=== PATIENT | female | born 1980 | race Caucasian/White ===

== ENCOUNTER → 2017-01-15 | Outpatient (CLI) | payer OTHER | LOC: FIMAGING 15:58 | PROVIDERS: ATTEND Obstetrics & Gynecology | DX: Z34.91 Encounter for supervision of normal pregnancy, unspecified, first trimester (principal); R10.32 Left lower quadrant pain; Z3A.01 Less than 8 weeks gestation of pregnancy ==

== ENCOUNTER → 2017-03-05 | Outpatient (CLI) | payer OTHER | LOC: FIMAGING 13:46 | PROVIDERS: ATTEND Obstetrics & Gynecology | DX: O09.521 Supervision of elderly multigravida, first trimester (principal); O46.8X1 Other antepartum hemorrhage, first trimester; O99.511 Diseases of the respiratory system complicating pregnancy, first trimester; J45.40 Moderate persistent asthma, uncomplicated; Z3A.12 12 weeks gestation of pregnancy ==

== ENCOUNTER → 2017-04-23 | Outpatient (CLI) | payer OTHER | LOC: FIMAGING 11:41 | PROVIDERS: ATTEND Obstetrics & Gynecology | DX: Z36 Encounter for antenatal screening of mother (principal); Z3A.19 19 weeks gestation of pregnancy; O34.219 Maternal care for unspecified type scar from previous cesarean delivery; O09.521 Supervision of elderly multigravida, first trimester; O99.511 Diseases of the respiratory system complicating pregnancy, first trimester; J45.40 Moderate persistent asthma, uncomplicated ==

== ENCOUNTER → 2017-07-09 | Outpatient (CLI) | payer OTHER | LOC: FIMAGING 13:31 | PROVIDERS: ATTEND Obstetrics & Gynecology | DX: O09.523 Supervision of elderly multigravida, third trimester (principal); Z3A.30 30 weeks gestation of pregnancy ==

== ENCOUNTER 2017-07-21 19:10 | Observation (INO) | payer OTHER ==
[2017-07-21 21:28] LABS: FETAL STAIN LOT NUMBER 93179
[2017-07-21 21:29] LABS: FETAL STAIN NEGATIVE NEGATIVE; FETAL STAIN POSITIVE POSITIVE
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
== END 2017-07-21 23:45 | disposition home or self-care (01) ==
LOC: FLD 19:10
PROVIDERS: ADMIT Obstetrics & Gynecology; ATTEND Obstetrics & Gynecology
DX: Z04.1 Encounter for examination and observation following transport accident (principal); Z3A.32 32 weeks gestation of pregnancy

== ENCOUNTER → 2017-07-30 | Outpatient (CLI) | payer OTHER | LOC: FIMAGING 14:09 | PROVIDERS: ATTEND Obstetrics & Gynecology | DX: O09.523 Supervision of elderly multigravida, third trimester (principal); O36.5930 Maternal care for other known or suspected poor fetal growth, third trimester, not applicable or unspecified; O99.513 Diseases of the respiratory system complicating pregnancy, third trimester; Z3A.33 33 weeks gestation of pregnancy ==

== ENCOUNTER → 2017-08-18 | Outpatient (CLI) | payer OTHER | LOC: FIMAGING 10:01 | PROVIDERS: ATTEND Obstetrics & Gynecology | DX: O36.5930 Maternal care for other known or suspected poor fetal growth, third trimester, not applicable or unspecified (principal); Z3A.36 36 weeks gestation of pregnancy ==

== ENCOUNTER 2017-08-23 12:32 | Observation (INO) | payer OTHER | END 2017-08-23 12:55 | disposition home or self-care (01) | LOC: FLD 12:32 | PROVIDERS: ADMIT Obstetrics & Gynecology; ATTEND Obstetrics & Gynecology | DX: Z34.90 Encounter for supervision of normal pregnancy, unspecified, unspecified trimester (principal) ==

== ENCOUNTER 2017-08-26 05:34 | Inpatient (IN) | payer OTHER ==
--- NOTE | 2017-08-21 18:15 | GHP ---
[f rep st] PREOP HISTORY AND PHYSICAL DATE OF ADMISSION: 08/26/2017 The patient's scheduled date of surgery is 08/26/2017 at 7:30 a.m. SURGERY TO BE PERFORMED: Repeat lower transverse section. PREOPERATIVE DIAGNOSIS: 1. History of lower transverse section. 2. Intrauterine growth restriction at 37 weeks' gestation. HISTORY OF PRESENT ILLNESS: The patient is a 36-year-old 3, para 1-0-1-1 with a last menstru al period of 12/06/2016, and an EDC of 09/04/2017 which was set by a first-trimester ultrasound. The patient had care with Dr. Chi at [facility] until transfer of care at 36 w eeks to [facility] because of concerns for possible early delivery and wanting to deliver a [facility]. The patient has a history of a primary lower transverse secti on with G1 secondary to failure to progress. She was induced with that because of non reas suring status on a nonstress test and baby was found to have intrauterine growth restriction at the t kati of . With this , she has been followed very closely with growth ultrasounds chad syed of her prior history and on 08/19/2017 baby's growth had decreased. Baby weighed 2314 g, which was 7th percentile, and she was diagnosed with intrauterine growth restriction. Doppler assessments of the umbilical arteries were performed and 1 of the arteries, Dopplers were elevated. Because of the falling off growth curve and the significant elevated Dopplers, Dr. Neda Prescott, recommended delive ry for this baby at 37 weeks and that is scheduled for 08/26/2017. The patient had previously expres sed an interest in having a vaginal after section, but she understands that she cannot be induced because of the history of the section and the increased risk of uterine rupture, and the need for timing for delivery of this baby because of the growth restriction, so she is sched uled for a section. OTHER RISK FACTORS: Patient is advanced maternal age. Had normal testing and gen etic testing in this . She has a history of asthma which she takes multiple medications and she is varicella nonimmune. PAST OBSTETRICAL HISTORY: In January of 2014, she had a viable male, who weighed 5 pounds 7 ounces, ena arean section secondary to failure to progress. Again, an induction of labor secondary to non reassu ring heart rate tracing on a nonstress test and baby was found to have intrauterine growth rest riction at the time of . Baby was admitted to the ICU for blood sugar control and had a week's stay. That baby is now doing well. In February of 2016, she had a missed , was treated medically with Cytotec and had to have an emergency D and C because of an incomplete and this was he r 3rd . PAST GYNECOLOGICAL HISTORY: She has a normal menstrual triad. Menarche at age 14. Interval every 2 1-28 days. Length of 7 days. This was a normal last menstrual period of 12/06/2016 and a planned pr egnancy. She has no history of abnormal Paps or STDs or gynecological problems. PAST MEDICAL HISTORY: Significant for asthma. She was diagnosed at age 14. She has never been intu bated, but she is on a persistent regimen of Singulair and Pulmicort to keep her symptoms under contr ol and has had good control this . She uses albuterol as needed. She also had a history of anxiety with her first baby. PAST SURGICAL HISTORY: Primary section in 2013, D and C in 2015. She had tonsil and adenoi dectomy at age 4 and wisdom teeth extraction. ALLERGIES: She has a sensitivity to doxycycline, it causes nausea, vomiting. Also hydrocodone cause s nausea, vomiting. She has also food sensitivities to wheat and avocado. LABORATORY DATA: She is O positive. Antibody negative. RPR nonreactive. Rubella immune. Hepatiti s negative. HIV negative. Cystic fibrosis, SMA, fragile X negative. Varicella nonimmune. Antenata l negative. Maternal serum AFP was negative. One hour GTT 96. GBS was negative. SOCIAL HISTORY: She lives with her and her son. 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 She denies tobacco, alcohol, and drug use. FAMILY HISTORY: Significant for paternal grandfather who of an ND in his 50s. Maternal grandmo ther has heart disease as does her mother. Mother has elevated cholesterol and thyroid disease. Pat rolando grandmother of lung cancer in her 90s. Her mother had a rare form of uterine cancer and s kin cancer. Maternal grandfather had dementia. REVIEW OF SYSTEMS: Today is negative except for normal complaints. No vaginal bleeding, l eakage of fluid. She has good movement and had a normal reactive nonstress test today. OBJECTIVE: VITAL SIGNS: Weight is 178.6 pounds. Blood pressure is 122/70. She has had a 40-pound weight gain this . Her urine dip is negative. GENERAL: She is a well-developed, gravid wh ite female, in no acute distress. LUNGS: Clear to auscultation bilaterally. HEART: Regular rate a nd rhythm, no murmur. ABDOMEN: Gravid. Fundal height is 34. heart tones are in the 130s. P ELVIC: Deferred. ASSESSMENT AND PLAN: A 36-year-old, 3, para 1-0-1-1, who will be 37 weeks and 2/7 days on . Is scheduled for a repeat lower transverse section secondary to history of ab an section and intrauterine growth restriction requiring delivery at 37 weeks. The patient was conse nted for the procedure today. She understood the risks and benefits. The risks including bleeding, infection, damage to internal organs, uterus, tubes, ovaries, bowel, bladder, nerves, blood vessels, ureters, risk of injury, risk of hemorrhage requiring blood transfusion, hysterectomy. The pat ient understood these risks and benefits and agreed to proceed. /[id number]/MODL
[2017-08-26] MEDS ORDERED: LR 500 ML IV ONE (05:46)
[2017-08-26] MEDS ORDERED: CITRIC ACID/SODIUM CITRATE 30 ML UDCUP PO ONE (05:46)
[2017-08-26] MEDS ORDERED: ceFAZolin 2 GM/DEXTROSE 100 ML IV ONE (05:46)
[2017-08-26] MEDS ORDERED: LR 1,000 ML IV SCH (06:00)
[2017-08-26 06:21] LABS: PLATELET COUNT 262 10^3/uL (150-400)
--- NOTE | 2017-08-26 07:31 | PDANEPAE ---
ANE History of Present Illness repeat c/s ANE Past Medical History - Pulmonary History Hx Asthma/Reactive Airway Disease: Yes Hx Oxygen in Use at Home: No Hx Sleep Apnea: No - Neurologic History Neurologic History Comment: tic - Endocrine History Hx Diabetes: No - GI History GERD: mild ANE Review of Systems Review of systems is: negative Review of Systems: - Exercise capacity Exercise capacity: >=4 METS ANE Patient History - Allergies Allergies/Adverse Reactions: acetaminophen [From Vicodin] Allergy (Mild, Verified 04/18/13 18:22) GI doxycycline Allergy (Mild, Verified 04/18/13 18:22) GI hydrocodone bitartrate [From Vicodin] Allergy (Mild, Verified 04/18/13 18:22) GI [place] Allergy (Uncoded 02/06/14 20:29) Egg White Allergy (Uncoded 02/06/14 20:29) [place] Allergy (Uncoded 02/06/14 20:29) Wheat Allergy (Uncoded 02/06/14 20:29) - Home Medications Home medications: home medication list seen and reviewed Home Medications: Dha 1 tab PO DAILY 02/06/14 [Last Taken 07/20/17] 1-1 Tablet 1 tab PO DAILY 02/06/14 [Last Taken 07/20/17] Singulair 10 mg (RX) 1 tab PO DAILY 02/06/14 [Last Taken 07/20/17] Albuterol 2 puffs PO PRN PRN 07/21/17 [Last Taken 07/21/17 19:32] Colace 100 MG (*) 1 cap PO DAILY 07/21/17 [Last Taken 07/20/17] PANTOTHENIC ACID 1 tab PO DAILY 07/21/17 [Last Taken 07/20/17] Pulmicort 180Mcg Flexhaler (*) 1 tab PO DAILY 07/21/17 [Last Taken 07/20/17] - NPO status NPO Status: no food or drink >8 hours - Anes Hx Anes Hx: no prior problems - Smoking Hx Smoking Status: Never smoked - Family Anes Hx Family Anes Hx: none ANE Labs/Vital Signs - Labs Result Diagrams: 08/26/17 06:09 - Vital Signs Height: 163.83 cm Weight: 80.739 kg ANE Physical Exam - Airway Neck exam: FROM Mallampati Score: Class 1 Mouth exam: normal dental/mouth exam - Pulmonary Pulmonary: no respiratory distress - Cardiovascular Cardiovascular: regular rate and rhythym - ASA Status ASA Status: I ANE Anesthesia Plan Anesthesia Plan: spinal
[2017-08-26] MEDS ORDERED: morphINE PF 5 MG/10 ML INJ ONE (07:33)
[2017-08-26] MEDS ORDERED: ONDANSETRON 4 MG/2 ML VIAL ONE (07:39)
[2017-08-26] MEDS ORDERED: DEXAMETHASONE 4 MG/ML VIAL ONE (07:39)
[2017-08-26] MEDS ORDERED: NALOXONE HCL 0.4 MG/ML INJ IVP PRN ×2 (08:36→08:59)
[2017-08-26] MEDS ORDERED: PHENYLEPHRINE HCL 100 MCG/ML SYR IVP PRN (08:36)
[2017-08-26] MEDS ORDERED: MEPERIDINE 25 MG/ML SYR IVP PRN (08:36)
[2017-08-26] MEDS ORDERED: HYDROmorphONE/DILAUDID 1 MG/ML INJ IVP PRN (08:36)
[2017-08-26] MEDS ORDERED: fentaNYL 100 MCG/2 ML INJ IVP PRN (08:36)
[2017-08-26] MEDS ORDERED: ONDANSETRON 4 MG/2 ML VIAL IVP PRN (08:36)
--- NOTE | 2017-08-26 08:38 | POSTANESTH ---
Post Anesthetic Evaluation Cardiovascular Status: Normal, Stable, Similar to Pre-Op Cond Respiratory Status: Normal, Stable, Similar to Pre-op Cond. Level of Consciousness/Mental Status: Can Participate in Eval, Alert and Oriented Pain Control: Adequate, Prn Tx Ordered Nausea/Vomiting Control: Adequate, Prn Tx Ordered Complications Possibly Related to Anesthesia: None Noted
[2017-08-26] MEDS ORDERED: OXYTOCIN 100 UNITS/10 ML VIAL ONE (08:57)
[2017-08-26] MEDS ORDERED: ACETAMINOPHEN 325 MG TAB PO PRN (10:09)
[2017-08-26] MEDS ORDERED: PROMETHAZINE HCL 25 MG/ML INJ IVP PRN (10:09)
[2017-08-26] MEDS ORDERED: MAGNESIUM HYDROXIDE 30 ML UDCUP PO PRN (10:09)
[2017-08-26] MEDS ORDERED: LACTULOSE 20 GM/30 ML UDCUP PO PRN (10:09)
[2017-08-26] MEDS ORDERED: SIMETHICONE 80 MG TAB CHEW PO PRN (10:09)
[2017-08-26] MEDS ORDERED: BISACODYL 10 MG SUPP PR PRN (10:09)
[2017-08-26] MEDS ORDERED: DOCUSATE SODIUM 100 MG CAP PO PRN (10:09)
--- NOTE | 2017-08-26 10:22 | OBDEL ---
Info Type: Repeat Presentation at Delivery: Vertex L&D Analgesia/Anesthesia Type: Spinal GBS+: No Intrapartum Medications: Discontinued Medications Generic Name Dose Route Start Last Admin Trade Name Adia PRN Reason Stop Dose Admin Citric Acid/Sodium Citrate 30 ml 08/26/17 05:46 08/26/17 07:51 Bicitra PO 08/26/17 05:47 30 ml ONCALL ONE Administration Cefazolin Sodium/Dextrose 100 mls @ 200 mls/hr 08/26/17 05:46 08/26/17 07:51 Ancef 2 Gm (Premix) IV 08/26/17 06:15 100 mls ONCALL ONE Administration Protocol Indications for Delivery: Growth Restriction w/Abnormal Doppler studies Vaginal Delivery - Labor and Delivery Rupture of Membranes Date: 08/26/17 Rupture of Membranes Time: 08: Placenta Delivery Date: 08/26/17 Placenta Delivery Time: Operative Report - Delivery Pre-op Diagnoses: IUP 37 weeks, IUGR with elevated dopplers, hx prior section Post-op Diagnoses: same History of Prior Section: Yes Number of Prior Sections: 1 Nulliparous Prior to Delivery: No Indications for Prior Section: Non-reas. Status Indications for Current Section: Elective/Repeat, Other (Specify) (IUGR ) Surgeon: Mariya Soriano Rental Management Trainee: Delfina Bravo Anesthesiologist: Js Higuera Complications: None EBL: 600 Copen Data TAVO: 09/14/17 Gestational Age: 37 week(s) and 2 day(s) Powell Delivery Date: 08/26/17 Delivery Time: Sex of Infant: Female Score (1 Min): 8 Score (5 Min): 9 ICD10 Worksheet Patient Problems: Problems Problem Status Onset delivery delivered Acute heart rate decelerations affecting management of mother Acute Retained tissue Acute - ICD10 Problem Qualifiers (1) delivery delivered
[2017-08-26] MEDS: ONDANSETRON 4 MG/2 ML VIAL IVP PRN ×2 (13:05→17:28)
[2017-08-26] MEDS: KETOROLAC 30 MG/1 ML SDV IVP SCH ×2 (13:07→19:00)
--- NOTE | 2017-08-26 13:38 | GOP ---
[f rep st] OPERATIVE REPORT DATE OF OPERATION: 08/26/2017 SURGEON: Mariya Soriano DO BOX PRINTER: CYNDI Brown PREOPERATIVE DIAGNOSIS: 1. Intrauterine at 38-2/7 weeks' gestation. 2. History of previous low-transverse section. 3. Intrauterine growth restriction with elevated Dopplers. POSTOPERATIVE DIAGNOSIS: 1. Intrauterine at 38-2/7 weeks' gestation. 2. History of previous low-transverse section. 3. Intrauterine growth restriction with elevated Dopplers. PROCEDURE PERFORMED: Repeat low-transverse section. FINDINGS: 1. Viable female in the cephalic presentation, delivered at 0827 hours, Apgars were 8 and 9. 2. Intact placenta with 3-vessel cord. 3. Normal ovaries, uterus, and tubes. ESTIMATED BLOOD LOSS: 600 cc. INDICATIONS: Patient is a 36-year-old 3, para 1-0-1-1, with a last menstrual period of 12/06, and estimated date of confinement of 09/04/2017 by 1st-trimester ultrasound. The patient init iated care with Dr. Chi at [facility] and transferred to [facility] at 36 weeks' gestation due to concerns of needing to be delivered early. The patient had a histor y of a previous low-transverse section with her 1st secondary to failure to progre ss. She was induced with that due to non-reassuring status on a nonstress test, and the baby later was found to be growth restricted. Because of her history of growth restriction, she was followed closely with this and had been 19th percentile through , and the most recent ultrasound on 08/19 showed the baby was in the 7th percentile with elevated Dopplers. Recomm endation for delivery at 37 weeks was made. Because the patient has a history of a previous low-edwards sverse section and she had a non-favorable cervix, decision was made to proceed with a repea t low-transverse section. The patient declines tubal ligation. Risks and benefits of the p rocedure have been reviewed with the patient and the patient was properly consented. DESCRIPTION OF PROCEDURE: Patient was taken to the operating room with intravenous fluids in place. She was then seated on the operating room table in the supine position, where anesthesia was obtaine d. She was then repositioned into the dorsal supine position with a leftward tilt. Loomis catheter w as then placed. Venodynes were placed on her lower extremities and she was then prepped and draped i n the normal sterile fashion. Anesthesia was assessed and found to be adequate. A Pfannenstiel skin incision was then made 2 fingerbreadths above the pubic symphysis. The incision was then carried th rough to the underlying layer of fascia with the Bovie. The fascia was then nicked in the midline an d the fascial incision was extended laterally. The superior aspect of the fascial incision was then grasped with Andreas's, tented up, and the underlying rectus muscle dissected off bluntly with the Bov ie. Attention was then turned to the inferior aspect of the fascial incision, which in a similar fas hion was grasped with the Andreas's, tented up, and the underlying rectus muscle dissected off bluntly with the Bovie. The rectus muscle was then in the midline. The peritoneum was then ident ified, tented up, and entered sharply with the Metzenbaum scissors. The incision was extended superi kristin and inferiorly with excellent visualization of the bladder. The bladder blade was then inserted . The vesicouterine peritoneum was then identified, tented up, and entered sharply with the Metzenba um scissors. The incision was extended laterally and bladder flap was created digitally. The bladde r blade was then reinserted. The uterus was then incised in a low-transverse fashion with the scalpe l. The uterine incision was extended laterally. The clear fluid was noted upon entering the amnioti c sac. Large amount of clear fluid was noted. The 's head was then delivered through the inci sammy without difficulty. Delayed cord clamping x1 was done. Cord was clamped x2 and cut and the inf ant was handed off to the nurse practitioner without difficulty. The uterus was then exteri orized and cleared of all clots and debris and wrapped in a moist laparotomy sponge. The bladder buck de was then reinserted. The uterine incision was then closed with 0 Vicryl in a running locked fashi on. A 2nd 0 Vicryl stitch was used to imbricate the uterine incision. The ovaries, uterus, and, tub es were unremarkable. The gutters were cleared of all clots and debris. The uterus was then returne d to the patient's abdomen. The gutters in the hysterotomy remained dry. The peritoneum was reappro ximated with 3-0 Vicryl in a running fashion. Rectus muscle was reapproximated with 2-0 Vicryl in a running fashion. Fascia was closed with 0 Vicryl in a running fashion. Savi tissue was found to b e hemostatic. It was reapproximated with 3-0 Vicryl in a running fashion. The subcuticular tissue w as reapproximated with 3-0 Vicryl in a running fashion. The skin was then closed with lucy in sev eral areas. Sponge, lap, and needle count were correct x2. Patient was transported to recovery room in stable condition. /[id number]/MODL
[2017-08-26] MEDS ORDERED: ALBUTEROL 200 PUFFS/18 GM MDI IH PRN (16:30)
--- NOTE | 2017-08-26 19:23 | OBPP ---
Progress Note Assessment/Plan: Assessment: pod# 0 s/p RLTCS breast feeding asthma uri Plan: routine post operative and post care 08/26/17 19:18 Subjective/ Course: 08/26/17 19:23 patient is doing well. was having low O2 saturation so was seen by respiratory therapists and started on o2. has a uri and a long hx of asthma and respiratory issues. working on breast feeding. still having nausea. feels much better than after last c section. very happy with care. Objective: 08/26/17 06:09 Patient ABO/Rh O POSITIVE 08/26/17 06:09 Temp Pulse Resp BP Pulse Ox 36.3 C 80 16 113/59 L 98 08/26/17 17:00 08/26/17 07:30 08/26/17 14:59 08/26/17 15:59 08/26/17 17:45 Physical Exam - Physical Exam Neck: non-tender, full range of motion Respiratory: chest non-tender, lungs clear, normal breath sounds Cardiac/Chest: normal peripheral pulses, regular rate, rhythm Abdomen: normal bowel sounds, non-tender Extremities: normal range of motion, non-tender, normal inspection, normal capillary refill Skin: normal color, warm/dry Neuro/Psych: no motor/sensory deficits, alert, normal mood/affect, oriented x 3
[2017-08-26] MEDS: MONTELUKAST SODIUM 10 MG TAB PO SCH (20:55)
[2017-08-26] MEDS: SENNOSIDES/DOCUSATE SODIUM TAB PO SCH (20:56)
[2017-08-27] MEDS: KETOROLAC 30 MG/1 ML SDV IVP SCH ×2 (00:29→06:09)
[2017-08-27] MEDS ORDERED: PULMICORT 180 MCG PO SCH (09:00)
[2017-08-27] MEDS ORDERED: PANTOPRAZOLE SODIUM 20 MG PO SCH (09:00)
[2017-08-27] MEDS: PULMICORT 180 MCG IH SCH ×2 (09:29→20:48)
[2017-08-27] MEDS: MONTELUKAST SODIUM 10 MG TAB PO SCH ×2 (09:30→20:48)
--- NOTE | 2017-08-27 09:30 | OBPP ---
Progress Note Assessment/Plan: Assessment: 36yo s/p repeat c/s POD#1 asthma anemia Plan: routine post op care start PO iron BID cont asthma meds/resp therapy PRN katz to be removed at this time ambulate plan to d/c home in approx 48 hours 08/27/17 09:31 08/27/17 09:35 08/27/17 09:36 Subjective/ Course: 08/26/17 19:23 patient is doing well. was having low O2 saturation so was seen by respiratory therapists and started on o2. has a uri and a long hx of asthma and respiratory issues. working on breast feeding. still having nausea. feels much better than after last c section. very happy with care. 08/27/17 09:32 Pt doing well, she denies any pain. She reports min bleeding. She has not voided yet, katz still in place- to be removed this morning. She denies any chest pain, SOB. She is , feels like she is latching ok. She is happy and states she feels good. Son, Osvaldo, will be coming to visit this morning. Objective: 08/27/17 06:15 Patient ABO/Rh O POSITIVE 08/26/17 06:09 Temp Pulse Resp BP Pulse Ox 37.1 C 80 18 85/44 L 96 08/27/17 06:25 08/27/17 06:25 08/27/17 06:25 08/27/17 06:25 08/27/17 06:25 Uterine Position/Fundal Height: Umbilicus -1, Midline Uterine Tone: Firm Physical Exam - Physical Exam Neck: supple Respiratory: lungs clear, normal breath sounds Cardiac/Chest: regular rate, rhythm Abdomen: non-tender, soft, incision, dressing (c/d/i) Neuro/Psych: no motor/sensory deficits, alert, normal mood/affect, oriented x 3
[2017-08-27] MEDS: SENNOSIDES/DOCUSATE SODIUM TAB PO SCH ×2 (09:53→20:43)
[2017-08-27] MEDS: OXYCODONE/APAP 5/325 TAB PO PRN ×4 (09:53→23:04)
[2017-08-27] MEDS: IRON POLYSAC/IRON HEME 28 MG TAB PO SCH ×2 (12:23→20:42)
[2017-08-27] MEDS: IBUPROFEN 600 MG TAB PO PRN ×2 (12:23→18:54)
--- NOTE | 2017-08-27 12:30 | SOAPPROG ---
SOAP Progress Note Assessment/Plan: Assessment: 36 yo female POD 1 s/p repeat c/s under SAB with morphine for post op pain. Doing well, pain reasonably controlled. Plan:continue po/iv analgesics prn as spinal morphine analgesia effect wanes 08/27/17 12:27 08/27/17 12:29 Subjective: pain increasing slightly, denies SCALES/weakness/numbness/paresthesias/pain at SAB site/radiculopathy Objective: awake and alert, neuro grossly intact Vital Signs Temp Pulse Resp BP Pulse Ox 36.6 C 77 18 91/57 L 93 08/27/17 08:00 08/27/17 08:00 08/27/17 06:25 08/27/17 08:00 08/27/17 08:00 Laboratory Results 08/27/17 06:15 08/26/17 08/27/17 08/28/17 05:59 05:59 05:59 Intake Total 2850 Output Total 3500 Balance -650 - Time Spent With Patient Time Spent With Patient: 5 min ICD10 Worksheet Patient Problems: Problems Problem Status Onset delivery delivered Acute heart rate decelerations affecting management of mother Acute Retained tissue Acute
[2017-08-28] MEDS: IBUPROFEN 600 MG TAB PO PRN ×4 (01:00→19:30)
[2017-08-28] MEDS: HYDROmorphONE/DILAUDID 2 MG TAB PO PRN ×6 (02:49→21:42)
[2017-08-28] MEDS: POLYETHYLENE GLYCOL 3350 17 GM PKT PO PRN (09:12)
[2017-08-28] MEDS: SENNOSIDES/DOCUSATE SODIUM TAB PO SCH ×2 (09:14→21:41)
[2017-08-28] MEDS: IRON POLYSAC/IRON HEME 28 MG TAB PO SCH ×2 (09:14→21:41)
[2017-08-28] MEDS: PULMICORT 180 MCG IH SCH ×2 (09:18→20:06)
--- NOTE | 2017-08-28 11:28 | OBPP ---
Progress Note Assessment/Plan: Assessment: POD 2 s/p RCS anemia Plan: routine care, iron BID, try increasing freq of dilaudid 08/28/17 11:22 Subjective/ Course: 08/26/17 19:23 patient is doing well. was having low O2 saturation so was seen by respiratory therapists and started on o2. has a uri and a long hx of asthma and respiratory issues. working on breast feeding. still having nausea. feels much better than after last c section. very happy with care. 08/27/17 09:32 Pt doing well, she denies any pain. She reports min bleeding. She has not voided yet, katz still in place- to be removed this morning. She denies any chest pain, SOB. She is , feels like she is latching ok. She is happy and states she feels good. Son, Osvaldo, will be coming to visit this morning. 08/28/17 11:23 Pt has now had 2 pills of the dilaudid and thinks its going to help more than the percocet. sergio reg diet but occas mild nausea. bld has decreased - urinating fine. Had a BM and hoping that helps the pain. Pain meds wearing off early and will increase freq to 3 hrs. baby has latched ok Objective: 08/27/17 06:15 Patient ABO/Rh O POSITIVE 08/26/17 06:09 Temp Pulse Resp BP Pulse Ox 36.6 C 84 15 99/67 L 95 08/28/17 08:00 08/28/17 08:00 08/28/17 01:00 08/28/17 08:00 08/28/17 08:00 Uterine Position/Fundal Height: Umbilicus -1 Uterine Tone: Firm Physical Exam - Physical Exam Abdomen: non-tender (approp post op tenderness), soft, other (incision CDI, lucy in place) Extremities: non-tender, pedal edema (mild) Skin: normal color, warm/dry Neuro/Psych: alert, normal mood/affect (feels a bit fragile)
[2017-08-28] MEDS ORDERED: HYDROmorphONE/DILAUDID 4 MG TAB PO PRN (11:30)
[2017-08-28] MEDS ORDERED: HYDROmorphONE/DILAUDID 2 MG TAB ONE (14:47)
[2017-08-28] MEDS: MONTELUKAST SODIUM 10 MG TAB PO SCH (20:08)
[2017-08-29] MEDS: HYDROmorphONE/DILAUDID 2 MG TAB PO PRN ×4 (01:21→20:41)
[2017-08-29] MEDS: IBUPROFEN 600 MG TAB PO PRN ×4 (01:21→20:40)
[2017-08-29] MEDS: SENNOSIDES/DOCUSATE SODIUM TAB PO SCH ×2 (08:24→20:40)
[2017-08-29] MEDS: IRON POLYSAC/IRON HEME 28 MG TAB PO SCH ×2 (08:24→20:40)
[2017-08-29] MEDS: PULMICORT 180 MCG IH SCH ×2 (08:26→20:42)
[2017-08-29] MEDS: POLYETHYLENE GLYCOL 3350 17 GM PKT PO PRN (08:44)
[2017-08-29 10:07] VITALS: PULSE 85
--- NOTE | 2017-08-29 11:50 | OBPP ---
Progress Note Assessment/Plan: Assessment: 1) s/p RCS POD # 3 - pt is stable 2) Anemia - pt is asymptomatic Plan: Continue routine pp care Will change Dilaudid to 1 mg q 3 hr prn to see if pain is better controlled Lucy to be removed today Encourage ambulation Plan for d/c if baby is discharged home, but has lost weight-11% Instructions reviewed with pt Rx given for Dilaudid and Motrin Cont PNV, iron and colace and not to take Miralax daily Pelvic rest RTC in 2, 4 and 6 weeks for pp check 08/29/17 11:53 Subjective/ Course: 08/26/17 19:23 patient is doing well. was having low O2 saturation so was seen by respiratory therapists and started on o2. has a uri and a long hx of asthma and respiratory issues. working on breast feeding. still having nausea. feels much better than after last c section. very happy with care. 08/27/17 09:32 Pt doing well, she denies any pain. She reports min bleeding. She has not voided yet, katz still in place- to be removed this morning. She denies any chest pain, SOB. She is , feels like she is latching ok. She is happy and states she feels good. Son, Osvaldo, will be coming to visit this morning. 08/28/17 11:23 Pt has now had 2 pills of the dilaudid and thinks its going to help more than the percocet. sergio reg diet but occas mild nausea. bld has decreased - urinating fine. Had a BM and hoping that helps the pain. Pain meds wearing off early and will increase freq to 3 hrs. baby has latched ok 08/29/17 11:51 Pt seen and examined. She is doing better, pain is better controlled. Has not had Dilaudid since 0100, but notes some shakiness with it. Pt is OOB, sergio regular diet, voiding without difficulty, and BM x 2 -with use of Miralax. Mod lochia. BF with some difficulty-to work with today. Objective: 08/27/17 06:15 Patient ABO/Rh O POSITIVE 08/26/17 06:09 Temp Pulse Resp BP Pulse Ox 36.7 C 85 16 106/65 95 08/29/17 10:06 08/29/17 10:06 08/29/17 10:06 08/29/17 10:06 08/29/17 10:06 Uterine Position/Fundal Height: Umbilicus -2 Uterine Tone: Firm Physical Exam - Physical Exam Respiratory: lungs clear, normal breath sounds Cardiac/Chest: regular rate, rhythm Abdomen: normal bowel sounds, non-tender, soft, flatus (+), incision (C/D/I with lucy) Extremities: non-tender, normal inspection Skin: normal color, warm/dry Neuro/Psych: alert, normal mood/affect, oriented x 3
--- NOTE | 2017-08-29 11:54 | OBGCSDC ---
General Delivery Information - General Info : 3 Para: 2 Abortions: 0 Type: Repeat L&D Analgesia/Anesthesia Type: Spinal Admission Date: 08/26/17 Labs: Patient ABO/Rh O POSITIVE 08/26/17 06:09 Hct 28.9 % (38.0-47.0) L D 08/27/17 06:15 - Hospital Course : 08/26/17 19:23 patient is doing well. was having low O2 saturation so was seen by respiratory therapists and started on o2. has a uri and a long hx of asthma and respiratory issues. working on breast feeding. still having nausea. feels much better than after last c section. very happy with care. 08/27/17 09:32 Pt doing well, she denies any pain. She reports min bleeding. She has not voided yet, katz still in place- to be removed this morning. She denies any chest pain, SOB. She is , feels like she is latching ok. She is happy and states she feels good. Son, Osvaldo, will be coming to visit this morning. 08/28/17 11:23 Pt has now had 2 pills of the dilaudid and thinks its going to help more than the percocet. sergio reg diet but occas mild nausea. bld has decreased - urinating fine. Had a BM and hoping that helps the pain. Pain meds wearing off early and will increase freq to 3 hrs. baby has latched ok 08/29/17 11:51 Pt seen and examined. She is doing better, pain is better controlled. Has not had Dilaudid since 0100, but notes some shakiness with it. Pt is OOB, sergio regular diet, voiding without difficulty, and BM x 2 -with use of Miralax. Mod lochia. BF with some difficulty-to work with today. - Delivery Providers Surgeon: Mariya Soriano Crossband Layer: Delfina Bravo Anesthesiologist: Js Higuera - Delivery Number of Prior Sections: 1 Indications for Current Section: Elective/Repeat, Other (Specify) (IUGR ) Intra-op Complications: None EBL: 600 Data TAVO: 09/14/17 Gestational Age: 37 week(s) and 5 day(s) [place] Delivery Date: 08/26/17 Delivery Time: 08:27 Sex of : Female Score (1 Min): 8 Score (5 Min): 9 Discharge Information - Discharge Information Condition: Good Instruction/Follow Up: Two Weeks, Four Weeks, Six Weeks
[2017-08-29] MEDS: MONTELUKAST SODIUM 10 MG TAB PO SCH (20:43)
[2017-08-29 22:53] VITALS: RESP 18
[2017-08-30] MEDS: IBUPROFEN 600 MG TAB PO PRN ×2 (03:29→09:38)
[2017-08-30] MEDS: HYDROmorphONE/DILAUDID 2 MG TAB PO PRN ×2 (03:29→09:39)
[2017-08-30] MEDS: SENNOSIDES/DOCUSATE SODIUM TAB PO SCH (09:03)
[2017-08-30] MEDS: IRON POLYSAC/IRON HEME 28 MG TAB PO SCH ×2 (09:03→09:04)
[2017-08-30] MEDS: PULMICORT 180 MCG IH SCH (09:05)
[2017-08-30 09:51] VITALS: BP 108/68; TEMP 97.7; O2SAT 96
--- NOTE | 2017-08-30 11:05 | OBPP ---
Progress Note Assessment/Plan: Assessment: pod# 4 s/p RLTCS breast feeding asthma anemia - on iron Plan: routine post operative and post care discharge instructions 08/30/17 11:03 Subjective/ Course: 08/26/17 19:23 patient is doing well. was having low O2 saturation so was seen by respiratory therapists and started on o2. has a uri and a long hx of asthma and respiratory issues. working on breast feeding. still having nausea. feels much better than after last c section. very happy with care. 08/27/17 09:32 Pt doing well, she denies any pain. She reports min bleeding. She has not voided yet, katz still in place- to be removed this morning. She denies any chest pain, SOB. She is , feels like she is latching ok. She is happy and states she feels good. Son, Osvaldo, will be coming to visit this morning. 08/28/17 11:23 Pt has now had 2 pills of the dilaudid and thinks its going to help more than the percocet. sergio reg diet but occas mild nausea. bld has decreased - urinating fine. Had a BM and hoping that helps the pain. Pain meds wearing off early and will increase freq to 3 hrs. baby has latched ok 08/29/17 11:51 Pt seen and examined. She is doing better, pain is better controlled. Has not had Dilaudid since 0, but notes some shakiness with it. Pt is OOB, sergio regular diet, voiding without difficulty, and BM x 2 -with use of Miralax. Mod lochia. BF with some difficulty-to work with today. 08/30/17 11:03 patient is doing well. pain is well controlled with dilaudid. denies headache and changes in vision. voiding without difficulty. milk has come in but baby having a hard time with breast feeding so using SNS. ambulating. very happy with experience Objective: 08/27/17 06:15 Patient ABO/Rh O POSITIVE 08/26/17 06:09 Temp Pulse Resp BP Pulse Ox 36.5 C 85 18 108/68 96 08/30/17 09:49 08/30/17 09:49 08/30/17 09:49 08/30/17 09:49 08/30/17 09:49 Physical Exam - Physical Exam Neck: non-tender, full range of motion, supple Respiratory: chest non-tender, lungs clear, normal breath sounds Cardiac/Chest: normal peripheral pulses, regular rate, rhythm Abdomen: normal bowel sounds, non-tender Extremities: normal range of motion, non-tender, normal inspection, normal capillary refill Skin: normal color, warm/dry, other (incision clean dry and intact) Neuro/Psych: no motor/sensory deficits, alert, normal mood/affect, oriented x 3
--- NOTE | 2017-08-30 11:08 | OBGCSDC ---
General Delivery Information - General Info : 3 Para: 2 Abortions: 0 Type: Repeat L&D Analgesia/Anesthesia Type: Spinal Admission Date: 08/26/17 Labs: Patient ABO/Rh O POSITIVE 08/26/17 06:09 Hct 28.9 % (38.0-47.0) L D 08/27/17 06:15 - Hospital Course Antepartum: 08/30/17 11:06 initiated care with [facility]. transferred to [facility] at 36 weeks. hx of previous c section declines trial of labor. asthma controlled. 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 : 08/26/17 19:23 patient is doing well. was having low O2 saturation so was seen by respiratory therapists and started on o2. has a uri and a long hx of asthma and respiratory issues. working on breast feeding. still having nausea. feels much better than after last c section. very happy with care. 08/27/17 09:32 Pt doing well, she denies any pain. She reports min bleeding. She has not voided yet, katz still in place- to be removed this morning. She denies any chest pain, SOB. She is , feels like she is latching ok. She is happy and states she feels good. Son, Osvaldo, will be coming to visit this morning. 08/28/17 11:23 Pt has now had 2 pills of the dilaudid and thinks its going to help more than the percocet. sergio reg diet but occas mild nausea. bld has decreased - urinating fine. Had a BM and hoping that helps the pain. Pain meds wearing off early and will increase freq to 3 hrs. baby has latched ok 08/29/17 11:51 Pt seen and examined. She is doing better, pain is better controlled. Has not had Dilaudid since 0100, but notes some shakiness with it. Pt is OOB, sergio regular diet, voiding without difficulty, and BM x 2 -with use of Miralax. Mod lochia. BF with some difficulty-to work with today. 08/30/17 11:03 patient is doing well. pain is well controlled with dilaudid. denies headache and changes in vision. voiding without difficulty. milk has come in but baby having a hard time with breast feeding so using SNS. ambulating. very happy with experience - Delivery Providers Surgeon: Mariya Soriano Laborer [employer] Processing: Delfina Bravo Anesthesiologist: Js Higuera - Delivery Number of Prior Sections: 1 Indications for Current Section: Elective/Repeat, Other (Specify) (IUGR ) Intra-op Complications: None EBL: 600 [place] Data TAVO: 09/14/17 Gestational Age: 37 week(s) and 6 day(s) [place] Delivery Date: 08/26/17 Delivery Time: 08:27 Sex of : Female Score (1 Min): 8 Score (5 Min): 9 Discharge Information - Discharge Information Prescriptions: HYDROmorphone HCL [Dilaudid 2 mg (*)] 1 mg PO Q3HRS PRN #30 tab PRN Reason: Pain, Severe Able To Take Po Ibuprofen [Motrin (*)] 600 mg PO Q6HRS PRN #30 tab PRN Reason: Inflammation Condition: Good Instruction/Follow Up: Two Weeks, Four Weeks, Six Weeks
[2017-08-30] MEDS: MONTELUKAST SODIUM 10 MG TAB PO SCH (11:19)
== END 2017-08-30 12:30 | disposition home or self-care (01) | DRG 766 ==
LOC: FLD 05:34 → FOB 08-27 11:15
PROVIDERS: ADMIT Advanced Practice Midwife; ATTEND Obstetrics & Gynecology
PROC: 10D00Z1 Extraction of Products of Conception, Low, Open Approach (ICD-10-PCS; principal; 2017-08-26)
DX: O36.5930 Maternal care for other known or suspected poor fetal growth, third trimester, not applicable or unspecified (principal); O26.893 Other specified pregnancy related conditions, third trimester; O34.211 Maternal care for low transverse scar from previous cesarean delivery; O90.81 Anemia of the puerperium; O09.523 Supervision of elderly multigravida, third trimester; O99.513 Diseases of the respiratory system complicating pregnancy, third trimester; J45.909 Unspecified asthma, uncomplicated; R09.02 Hypoxemia; J38.3 Other diseases of vocal cords; Z87.59 Personal history of other complications of pregnancy, childbirth and the puerperium; Z37.0 Single live birth; Z3A.37 37 weeks gestation of pregnancy
CPT/HCPCS: J0690; J1100; J1885; J2274; J2405; J2590